=== PATIENT | male | born 1990 | race Caucasian/White ===

== ENCOUNTER 2017-06-07 02:57 | Emergency (ER) | payer OTHER ==
[~2017-06-07] VITALS: Ht 172.7 cm; Wt 61.0 kg
[2017-06-07] MEDS ORDERED: AZITHROMYCIN 500 MG TABLET ONE (04:07)
[2017-06-07] MEDS ORDERED: CEFTRIAXONE 250 MG ONE (04:07)
[2017-06-07 04:18] VITALS: BP 118/78
[2017-06-07] MEDS ORDERED: CEFTRIAXONE 250 MG IM ONE (04:30)
[2017-06-07] MEDS ORDERED: AZITHROMYCIN 500 MG TABLET PO ONE (04:30)
== END 2017-06-07 04:38 | disposition home or self-care (01) ==
LOC: EDSEX 02:57 → ED 03:31
DX: A56.01 Chlamydial cystitis and urethritis (principal); A54.01 Gonococcal cystitis and urethritis, unspecified
CPT/HCPCS: 96372; 99283; J0696